=== PATIENT | male | born 1985 | race Caucasian/White ===

== ENCOUNTER 2021-10-28 19:36 | Observation (INO) | payer OTHER, SELFPAY ==
--- NOTE | ~2021-10-28 | XR_ITS ---
EXAMINATION: XR foot RT min 3V DATE: 10/28/2021 20:29 INDICATION: Puncture wound with infection TECHNIQUE: Dorsoplantar, two oblique and lateral views of the right foot were obtained. COMPARISON: None. FINDINGS: Bone alignment is normal. No fracture. Joint spaces are normal. No cortical erosions or periosteal re action. Prominent soft tissue swelling medial to the first metatarsophalangeal joint. No soft tissue gas or radiopaque foreign bodies. IMPRESSION: 1. No osseous abnormality, soft tissue gas or radiopaque foreign bodies. Reviewed, dictated and finalized at location [facility]
--- NOTE | ~2021-10-28 | CT_ITS ---
EXAMINATION: CT foot RT w con DATE: 10/29/2021 16:42 INDICATION: Right foot puncture wound with infection. TECHNIQUE: High resolution computed tomography (CT) of the with 100 mL Omnipaque-350 was performed wi thout intravenous contrast. Additional sagittal and coronal reconstructions were performed. Automated exposure control and iterative reconstruction technique were employed. The dose-length product was 7 4.44 mGy-cm. COMPARISON: None FINDINGS: Soft tissue swelling surrounding a 1.6 x 1.0 x 1.8 cm region of decreased attenuation with surroundin g hyperemia in the soft tissues overlying the medial base of the first proximal phalanx. No organized enhancing peripheral wall to suggest abscess. There is some overlying bandaging material. No associa saray retained foreign body or evident soft tissue gas to suggest necrotizing fasciitis. No evident und erlying osteolysis or periosteal reaction to suggest osteomyelitis. Bone alignment is normal. No frac ture. There is a small chronic juxta articular erosion at the medial head of the first metatarsal wit h overhanging edges and smooth corticated margins almost from the unrelated to the recent puncture in jur but with location and appearance typical for gout. Joint spaces are normal. No joint effusions. There is a sclerotic bone island at the lateral side of the distal tibia. IMPRESSION: 1. Cellulitis surrounding a 1.6 x 1.0 x 1.8 cm low-attenuation region of likely phlegmonous change wi thout organized wall to suggest abscess in the subcutaneous tissues overlying the medial base of the right first proximal phalanx. No underlying acute osseous abnormality, retained radiopaque foreign bart dies or soft tissue gas to suggest necrotizing fasciitis. Reviewed, dictated and finalized at location [facility] IMPRESSION: 1. Cellulitis surrounding a 1.6 x 1.0 x 1.8 cm low-attenuation region of likely phlegmonous change without organized wall to suggest abscess in the subcutaneo us tissues overlying the medial base of the right first proximal phalanx. No un derlying acute osseous abnormality, retained radiopaque foreign bodies or soft tissue gas to suggest necrotizing fasciitis.
[2021-10-28 19:41] VITALS: BP 143/84; PULSE 147; RESP 21; TEMP 36.7; O2SAT 100
[2021-10-28 20:30] LABS: Basophils Absolute Auto 0.1 K/mm3 (0.0-0.1); Basophils Percent Auto 0.5 % (0.2-1.2); Eosinophils Absolute Auto 0.3 K/mm3 (0-0.3); Eosinophils Percent Auto 1.8 % (0-4.4); Hematocrit 40.3 % (42.0-52.0); Hemoglobin 13.4 g/dL (14.0-18.0); Immature Granulocyte Absolute 0.05 K/mm3 (0.00-0.031); Immature Granulocyte Percent A 0.3 % (0-0.5); Lymphocytes Absolute Auto 4.17 K/mm3 (0.9-3.2); Lymphocytes Percent Auto 23.8 % (18.3-44.2); Mean Corpuscular HGB Conc 33.3 g/dl (32-36); Mean Corpuscular Hemoglobin 28.6 pg (26-34); Mean Corpuscular Volume 86.1 fl (80-100); Mean Platelet Volume 8.8 fl (7.4-10.4); Monocytes Absolute Auto 1.4 K/mm3 (0.1-0.6); Neutrophils Absolute Auto 11.5 K/mm3 (1.3-6.7); Neutrophils Percent Auto 65.6 % (45.5-73.1); Platelet Count Result 594 k/mm3 (150-375); Red Blood Count 4.68 M/mm3 (4.6-6.20); Red Cell Distribution Width 13.6 % (11.5-14.5); White Blood Count 17.5 K/mm3 (4.5-10.0)
[2021-10-28] MEDS: SODIUM CHLORIDE 0.9% IV 2,000 ML/1,000 ML BAG 999 ML IV CONT ×2 (20:33→23:36)
[2021-10-28] MEDS: MORPHINE SULFATE (*CRX) 4 MG/ML INJ IV PUSH ×2 (20:33→23:36)
[2021-10-28 20:43] LABS: Lactic Acid Reflex 1.4 mmol/L (0.7-2.1)
[2021-10-28 20:45] LABS: Alanine Aminotransferase 90 U/L (4-50); Albumin Level 4.7 g/dL (3.5-5.1); Alkaline Phosphatase 241 U/L (38-126); Anion Gap 7 mmol/L (8-16); Aspartate Amino Transferase 47 U/L (17-59); Bilirubin,Total 0.3 mg/dL (0.2-1.3); Blood Urea Nitrogen 16 mg/dL (9-20); CRP 3.4 mg/dL (<1.0); Calcium 9.8 mg/dL (8.4-10.2); Carbon Dioxide 31 mmol/L (22-30); Chloride 98 mmol/L (98-107); Estimated CRCL calculation 78 ml/min; Estimated Glomerular Filt Rate > 60; Glucose 106 mg/dL (65-110); Potassium 3.9 mmol/L (3.4-5.0); Sodium 136 mmol/L (137-145)
--- NOTE | 2021-10-28 21:08 | ED.GENADULT ---
HPI - General Adult General Chief complaint: Extremity Injury, Lower Stated complaint: right big toe injury/pain Time Seen by Provider: 10/28/21 20:08 History of Present Illness HPI narrative: Patient is a 36-year-old male who presents ER with foot pain and swelling. Worsening over the last 4 days. Patient stepped on a piece of wood containing 4 nails several days ago. Reports tetanus shot up-to-date. He has drainage from the plantar aspect of his foot. His foot is swollen and red. Denies fevers or chills. No chest pain or chest pressure. No difficulty breathing. Related Data Home Medications Medication Instructions Recorded Confirmed No Home Medications 10/28/21 10/28/21 Allergies Allergy/AdvReac Type Severity Reaction Status Date / Time Sulfa (Sulfonamide Allergy Unknown Unknown Verified 10/28/21 20:32 Antibiotics) Review of Systems Review of Systems: All systems reviewed & are unremarkable except as noted in HPI and below Constitutional: Constitutional: Denies chills, Denies fever(s) and Denies weakness ENT: Denies nasal congestion and Denies sore throat Cardiovascular: Cardiovascular: Denies chest pain, Denies rapid heart rate and Denies radiating jaw, neck or arm pain Respiratory: Respiratory: Denies cough and Denies dyspnea Gastrointestinal: Gastrointestinal: Denies abdominal pain, Denies nausea and Denies vomiting Musculoskeletal: Musculoskeletal: Denies muscle cramps Comments: Foot swelling Integumentary/Breasts: Skin/Breast: Reports erythema and Reports skin ulcer PMFSH Past Medical History Medical History (Updated 10/28/21 @ 21:40 by Kasi Rondon MD) Healthy adult male Surgical History Surgical History (Updated 10/28/21 @ 21:37 by Kasi Rondon MD) No history of previous surgery Social History Social History (Updated 10/28/21 @ 21:38 by Kasi Rondon MD) Smoking status: Current every day smoker Exam Narrative: GENERAL: Well-appearing, unkempt, well-nourished, and in no acute distress. HEAD: Normocephalic, atraumatic. ENT: Mucous membranes moist. CHEST: Clear to auscultation. No respiratory distress. HEART: Regular rate and rhythm. Normal peripheral pulses. ABDOMEN: Soft, nontender, nondistended. EXTREMITIES: Normal range of motion. 1+ edema right foot. SKIN: Warm, dry. Cellulitis right foot with sloughing of skin over the lateral aspect of the first MTP. There is a draining wound to the plantar aspect of the foot underneath the first MTP. NEURO: Alert and oriented x3. PSYCH: Normal mood and affect. Course Course Emergency Course: Discussed treatment plan with patient. Admit to hospitalist service. Cefazolin ordered. General surgery consulted. Vital Signs Vital signs: Vital Signs Temperature 98.0 F 10/28/21 19:41 Pulse Rate 147 H 10/28/21 19:41 Respiratory Rate 21 H 10/28/21 19:41 Blood Pressure 143/84 H 10/28/21 19:41 Pulse Oximetry 100 10/28/21 19:41 Temperature 98.0 F 10/28/21 19:41 Pulse Rate 147 H 10/28/21 19:41 Respiratory Rate 21 H 10/28/21 19:41 Blood Pressure 143/84 H 10/28/21 19:41 Pulse Oximetry 100 10/28/21 19:41 Medical Decision Making Vital Signs Vital Signs: Vital Signs Temperature 98.0 F 10/28/21 19:41 Pulse Rate 147 H 10/28/21 19:41 Respiratory Rate 21 H 10/28/21 19:41 Blood Pressure 143/84 H 10/28/21 19:41 Pulse Oximetry 100 10/28/21 19:41 Temperature 98.0 F 10/28/21 19:41 Pulse Rate 147 H 10/28/21 19:41 Respiratory Rate 21 H 10/28/21 19:41 Blood Pressure 143/84 H 10/28/21 19:41 Pulse Oximetry 100 10/28/21 19:41 Lab Data Result diagrams: 10/28/21 20:20 10/28/21 20:21 Labs: Lab Results 10/28/21 10/28/21 10/28/21 Range/Units 20:20 20:21 20:21 WBC 17.5 H (4.5-10.0) K/mm3 RBC 4.68 (4.6-6.20) M/mm3 Hgb 13.4 L (14.0-18.0) g/dL Hct 40.3 L (42.0-52.0) % MCV 86.1 (80-100) fl MCH 28.6 (2
--- NOTE | 2021-10-28 22:29 | PM.IMHP ---
H&P: HPI History of Present Illness Date/Time: 10/28/21 22:29 Chief Complaint: Right foot swelling Narrative: This is a 36-year-old male with past medical history significant for IVDU methamphetamine, tobacco dependence. Patient presented to the emergency room due to right foot swelling and pain a few days ago patient while doing yd cleaning step on a piece of wood with for nails is sticking out this was roughly 4-5 days ago he notices worsening pain swelling redness and then purulent discharge. However he denies any fevers, any rigors, any chills, no nausea no vomiting no abdominal pain no diarrhea no shortness of breath no cough no sputum production he has been in his usual state of health. Preliminary workup was significant for foot x-ray no osseous abnormality, soft tissue gas or radiopaque foreign bodies. Patient has been started on IV antibiotics and is going to be admitted for further evaluation, management and treatment. Review of Systems Review of Systems: Right foot a swelling in pain purulent discharge from penetration wound by foreign body. Constitutional: Constitutional: Denies chills, Denies fatigue, Denies fever(s), Denies malaise and Denies night sweats Eyes: Eyes: Denies change in vision ENT: Denies dysphagia, Denies nasal congestion, Denies nasal discharge, Denies nasal obstruction and Denies odynophagia Cardiovascular: Cardiovascular: Denies acrocyanosis, Denies chest pain, Denies diaphoresis, Denies irregular heart rhythm, Denies radiating jaw, neck or arm pain and Denies dyspnea on exertion Respiratory: Respiratory: Denies change in phlegm color, Denies cough, Denies excessive phlegm production, Denies dyspnea and Denies wheezing Gastrointestinal: Gastrointestinal: Denies abdominal pain, Denies dyspepsia, Denies heartburn, Denies diarrhea, Denies nausea and Denies vomiting Genitourinary: Genitourinary: Denies dysuria and Denies flank pain Musculoskeletal: Comments: Right foot wound swelling purulent discharge Integumentary/Breasts: Skin/Breast: Denies rash Neurologic: Denies focal weakness and Denies Sensory deficit (Neuro) Psychiatric: Psychiatric: Reports no additional psychiatric complaints and Reports as per HPI Endocrine: Endocrine: Denies polyphagia, Denies polydipsia, Denies polyuria and Denies palpitations Hematologic/Lymphatic: Hematologic/Lymphatic: Reports no additional hematologic/lymphatic complaints and Reports as per HPI Allergic/Immunologic: Allergic/Immunologic: Reports no additional allergic/immunologic complaints and Reports as per HPI [facility] Past Medical History Medical History (Updated 10/29/21 @ 05:36 by Isaias Duffy MD) Healthy adult male Surgical History Surgical History (Updated 10/28/21 @ 21:37 by Kasi Rondon MD) No history of previous surgery Social History Social History (Updated 10/28/21 @ 21:38 by Kasi Rondon MD) Smoking status: Current every day smoker Tobacco type: cigarettes Second hand tobacco smoke exposure: Yes Alcohol intake: unknown Substance use: unknown Spiritual care concerns: No Meds Home Medications and Allergies Home Medications Medication Instructions Recorded Confirmed Type No Home Medications 10/28/21 10/28/21 History Allergies Allergy/AdvReac Type Severity Reaction Status Date / Time Sulfa (Sulfonamide Allergy Unknown Unknown Verified 10/28/21 20:32 Antibiotics) Vital Signs Vital Signs - 24 hr 10/28/21 19:41 Temperature 98.0 F Pulse Rate 147 H Respiratory Rate 21 H Blood Pressure 143/84 H Pulse Oximetry 100 Exam Narrative: Laying in [facility] Const: General: cooperative, comfortable, no acute distress, well developed, alert, awake, Physically active, well groomed and other Nutritional Appearance: thin Orientation/consciousness: patient oriented x3 HENMT: Head: normal to inspection, normocephalic and atraumatic Ears: hearing grossly normal bilaterally General nose exam
[2021-10-28 22:45] VITALS: BP 157/74; PULSE 109; RESP 16; TEMP 37.1; O2SAT 98
[2021-10-28 23:30] VITALS: BP 135/83; PULSE 110; RESP 22; TEMP 37.6; O2SAT 100; BMI 23.1
[2021-10-29] VITALS: BP 135/83; PULSE 110; RESP 22; TEMP 37.6; O2SAT 96
[2021-10-29 00:39] VITALS: BMI 23.1
--- NOTE | 2021-10-29 00:41 | ADMGEN ---
This patient, Tanner Montilla, was admitted to [facility] Surg Room 321-01. Patient/family oriented to hospital policies and general routines including ID bracelet, bed and alarms, visiting hours, pain management, procedures, bathroom and other care routines, personal items, smoking policy, room service/diet, and visiting hours. Information on how to activate the Rapid Response Team has been discussed. Patient/Family are encouraged to report perceived risks to care and to ask questions if they do not understand what they are told or what they should do.
[2021-10-29 06:00] VITALS: BP 117/76; PULSE 104; RESP 20; TEMP 36.9; O2SAT 97
[2021-10-29] MEDS: MORPHINE SULFATE (*CRX) 4 MG/ML INJ IV PUSH (08:39)
--- NOTE | 2021-10-29 09:47 | PM.CNGS ---
Assessment and Plan Assessment and plan (1) Puncture wound: Code(s): T14.8XXA - Other injury of unspecified body region, initial encounter Status: Acute Assessment and Plan: Patient appears to have cellulitis and possible abscess at puncture wound from previously stepping on a nail. Will plan to get a CT of his foot today. Patient has already eaten today, therefore surgical procedure will be unlikely. Will plan to keep NPO after midnight and proceed with incision and drainage of right foot abscess tomorrow. He is currently broad-spectrum IV antibiotics. (2) Cellulitis and abscess of foot: Code(s): L03.119 - Cellulitis of unspecified part of limb; L02.619 - Cutaneous abscess of unspecified foot Status: Acute (3) Tobacco dependence due to cigarettes: Code(s): F17.210 - Nicotine dependence, cigarettes, uncomplicated Status: Acute History of Present Illness Consult details Consult date: 10/29/21 Reason for consult: other (Foot puncture wound) Requesting physician: Kasi Rondon MD Narrative: this is a 36-year-old man who presented to the emergency department overnight with swelling and pain in his right foot. About 4 days ago he states he stepped on a piece of wood with 4 nails sticking out of it. He states that he is up-to-date on his tetanus shot, therefore he tried to treat this at home. He has had progressively worsening swelling and pain over the past several days. He states that his great toe it feels very swollen and painful. He has also had some slight drainage coming from the wound. He denies any prior vascular disease. Denies any claudication. His forefoot feels very swollen, but he denies any swelling extending up his leg. He denies any fevers or chills. Review of Systems Review of Systems: All systems reviewed & are unremarkable except as noted in HPI and below Constitutional: Constitutional: Denies chills and Denies fever(s) Eyes: Eyes: Denies change in vision ENT: Denies hearing loss, Denies neck pain and Denies sore throat Cardiovascular: Cardiovascular: Denies chest pain and Denies dyspnea Respiratory: Respiratory: Denies cough, Denies dyspnea and Denies wheezing Gastrointestinal: Gastrointestinal: Denies abdominal pain, Denies nausea and Denies vomiting Genitourinary: Genitourinary: Denies hematuria and Denies dysuria Musculoskeletal: Musculoskeletal: Denies arthralgias, Denies joint swelling and Denies neck pain Allergic/Immunologic: Allergic/Immunologic: Denies wheezing PMFSH Past Medical History Medical History Healthy adult male Surgical History Surgical History No history of previous surgery Social History Social History Smoking status: Current every day smoker Tobacco type: cigarettes Second hand tobacco smoke exposure: Yes Alcohol intake: unknown Substance use: unknown Spiritual care concerns: No Meds Home Medications and Allergies Home Medications Medication Instructions Recorded Confirmed Type No Home Medications 10/28/21 10/28/21 History Allergies Allergy/AdvReac Type Severity Reaction Status Date / Time Sulfa (Sulfonamide Allergy Unknown Unknown Verified 10/28/21 20:32 Antibiotics) Vital Signs Vital Signs - 24 hr 10/28/21 19:41 10/28/21 22:45 10/28/21 23:30 Temperature 36.7 C 37.1 C 37.6 C Pulse Rate 147 H 109 H 110 H Respiratory Rate 21 H 16 22 H Blood Pressure 143/84 H 157/74 H 135/83 Pulse Oximetry 100 98 100 10/29/21 00:00 10/29/21 06:00 Temperature 37.6 C 36.9 C Pulse Rate 110 H 104 H Respiratory Rate 22 H 20 Blood Pressure 135/83 117/76 Pulse Oximetry 96 97 Exam Const: General: alert; No acute distress Orientation/consciousness: patient oriented x3 Limitations: no limitations HENMT: Head: norm
--- NOTE | 2021-10-29 11:48 | PM.IMPN ---
Progress Note: A&P Assessment and Plan (1) Cellulitis and abscess of foot: Code(s): L03.119 - Cellulitis of unspecified part of limb; L02.619 - Cutaneous abscess of unspecified foot Status: Acute Assessment and Plan: Admit to regular medical floor Local care Surgery consult Maliha lao vanc Cultures in progress (2) Puncture wound: Code(s): T14.8XXA - Other injury of unspecified body region, initial encounter Status: Acute Assessment and Plan: Surgery consulted Local care Will give dose of tetanus (3) IVDU (intravenous drug user): Code(s): F19.90 - Other psychoactive substance use, unspecified, uncomplicated Status: Acute Assessment and Plan: Patient with no fevers chills or rigors no night sweats Consider echocardiogram if positive blood cultures (4) Tobacco dependence due to cigarettes: Code(s): F17.210 - Nicotine dependence, cigarettes, uncomplicated Status: Acute Assessment and Plan: Nicotine patch as needed Additional Plan 10/29/2021 Continue with IV antibiotics. Monitor culture. Surgical evaluation. Subjective Date/time seen: 10/29/21 11:48 Patient has swelling and redness of right lower ext foot. No shortness of breath or chest pain. No abdominal pain, nausea, no vomiting, mood stable. Review of Systems Constitutional: Constitutional: Denies chills, Denies fatigue, Denies fever(s), Denies malaise and Denies night sweats Eyes: Eyes: Denies change in vision ENT: Denies dysphagia, Denies nasal congestion, Denies nasal discharge, Denies nasal obstruction and Denies odynophagia Cardiovascular: Cardiovascular: Denies acrocyanosis, Denies chest pain, Denies diaphoresis, Denies irregular heart rhythm, Denies radiating jaw, neck or arm pain, Denies palpitations, Denies dyspnea and Denies dyspnea on exertion Respiratory: Respiratory: Denies change in phlegm color, Denies cough, Denies excessive phlegm production, Denies dyspnea, Denies dyspnea on exertion and Denies wheezing Gastrointestinal: Gastrointestinal: Denies abdominal pain, Denies dysphagia, Denies dyspepsia, Denies heartburn, Denies diarrhea, Denies nausea, Denies odynophagia and Denies vomiting Genitourinary: Genitourinary: Denies dysuria and Denies flank pain Integumentary/Breasts: Skin/Breast: Denies rash Neurologic: Denies focal weakness and Denies Sensory deficit (Neuro) Psychiatric: Psychiatric: Reports no additional psychiatric complaints and Reports as per HPI Endocrine: Endocrine: Denies fatigue, Denies polyphagia, Denies polydipsia, Denies polyuria and Denies palpitations Hematologic/Lymphatic: Hematologic/Lymphatic: Reports no additional hematologic/lymphatic complaints and Reports as per HPI Allergic/Immunologic: Allergic/Immunologic: Reports no additional allergic/immunologic complaints, Reports as per HPI and Denies wheezing Exam Const: General: cooperative, comfortable, no acute distress, well developed, alert, awake, Physically active, well groomed and other Nutritional Appearance: thin Orientation/consciousness: patient oriented x3 HENMT: Head: normal to inspection, normocephalic and atraumatic Ears: hearing grossly normal bilaterally General nose exam: Normal external nose present Face and sinus: normal facial exam Eyes: General: appearance normal, both eyes and all related structures Alignment and Position: alignment normal Sclera: sclerae normal Pupils: Equal, round and reactive pupils present EOM: EOMs intact bilaterally Neck: Neck: normal visual inspection, full ROM, no lymphadenopathy, supple and no JVD Thyroid: thyroid normal Lymphatic: no lymphadenopathy noted Resp: Effort & Inspection: normal respiratory effort and able to speak in complete sentences Auscultation: clear to auscultation bilaterally, no crackles, no rales, no rhonchi and no wheezes Cardio: Jugular venous distension: no JVD Rate: regular rate Rhythm: regular rhythm Heart sounds: S
[2021-10-29 14:00] VITALS: BP 127/77; PULSE 91; RESP 18; TEMP 36.9; O2SAT 100
[2021-10-29 19:42] VITALS: BP 119/59; PULSE 114; RESP 18; TEMP 36.6; O2SAT 100
[2021-10-29 20:00] VITALS: RESP 18; O2SAT 100
[2021-10-30] VITALS (11 sets, daily range): BP systolic 84–116; BP diastolic 52–75; PULSE 62–120; RESP 12–20; TEMP 36.2–37.1; O2SAT 96–100
[2021-10-30 06:29] LABS: Hematocrit 39.2 % (42.0-52.0); Hemoglobin 13.2 g/dL (14.0-18.0); Mean Corpuscular HGB Conc 33.7 g/dl (32-36); Mean Corpuscular Hemoglobin 28.4 pg (26-34); Mean Corpuscular Volume 84.5 fl (80-100); Mean Platelet Volume 8.8 fl (7.4-10.4); Platelet Count Result 554 k/mm3 (150-375); Red Blood Count 4.64 M/mm3 (4.6-6.20); Red Cell Distribution Width 13.5 % (11.5-14.5); White Blood Count 11.7 K/mm3 (4.5-10.0)
[2021-10-30 06:45] LABS: Anion Gap 5 mmol/L (8-16); Blood Urea Nitrogen 9 mg/dL (9-20); Carbon Dioxide 26 mmol/L (22-30); Chloride 101 mmol/L (98-107); Estimated CRCL calculation 105 ml/min; Estimated Glomerular Filt Rate > 60; Glucose 109 mg/dL (65-110); Potassium 4.4 mmol/L (3.4-5.0); Sodium 132 mmol/L (137-145)
--- NOTE | 2021-10-30 09:51 | PM.IMPN ---
Progress Note: A&P Assessment and Plan (1) Cellulitis and abscess of foot: Code(s): L03.119 - Cellulitis of unspecified part of limb; L02.619 - Cutaneous abscess of unspecified foot Status: Acute Assessment and Plan: Admit to regular medical floor Local care Surgery consult Maliha lao vanc Cultures in progress (2) Puncture wound: Code(s): T14.8XXA - Other injury of unspecified body region, initial encounter Status: Acute Assessment and Plan: Surgery consulted Local care Will give dose of tetanus (3) IVDU (intravenous drug user): Code(s): F19.90 - Other psychoactive substance use, unspecified, uncomplicated Status: Acute Assessment and Plan: Patient with no fevers chills or rigors no night sweats Consider echocardiogram if positive blood cultures (4) Tobacco dependence due to cigarettes: Code(s): F17.210 - Nicotine dependence, cigarettes, uncomplicated Status: Acute Assessment and Plan: Nicotine patch as needed Additional Plan 10/29/2021 Continue with IV antibiotics. Monitor culture. Surgical evaluation. 10/30/2021 WBC count has decreased to 11. Patient is scheduled for in cm trended today. Will continue with IV antibiotic. Cultures pending. Subjective Date/time seen: 10/30/21 09:51 Patient was seen during the morning rounds today. Patient put is still slightly swollen and red. No shortness of breath or chest pain. No abdominal pain, nausea, no vomiting. Mood stable. Exam Const: General: cooperative, comfortable, no acute distress, well developed, alert, awake, Physically active, well groomed and other Nutritional Appearance: thin Orientation/consciousness: patient oriented x3 HENMT: Head: normal to inspection, normocephalic and atraumatic Ears: hearing grossly normal bilaterally General nose exam: Normal external nose present Face and sinus: normal facial exam Eyes: General: appearance normal, both eyes and all related structures Alignment and Position: alignment normal Sclera: sclerae normal Pupils: Equal, round and reactive pupils present EOM: EOMs intact bilaterally Neck: Neck: normal visual inspection, full ROM, no lymphadenopathy, supple and no JVD Thyroid: thyroid normal Lymphatic: no lymphadenopathy noted Resp: Effort & Inspection: normal respiratory effort and able to speak in complete sentences Auscultation: clear to auscultation bilaterally, no crackles, no rales, no rhonchi and no wheezes Cardio: Jugular venous distension: no JVD Rate: regular rate Rhythm: regular rhythm Heart sounds: S1 normal heart sound present and S2 normal heart sound present GI: Inspection: normal to inspection : General: Yes deferred Skin: Rashes: no rashes Wounds: wounds noted (Right plantar aspect) Neuro: General: patient oriented x3, CN's II-XI intact bilaterally and Unable to assess gait Cranial nerves: Yes CN's II-XII intact bilaterally and Yes Equal, round and reactive pupils present Cognition (Neuro): normal cognition Speech: normal speech Gait exam (Neuro): Unable to assess gait Motor exam (neuro): 5/5 motor strength present throughout Sensory Exam: No Sensory deficit (Neuro) Extrem: General: normal to inspection, full ROM, no joint enlargement and no pedal edema Right lower extremity: foot Details: tenderness, warmth, edema, puncture wound and other (Purulent discharge) Objective Data Vital Signs Vital Signs: Vital Signs - 24 hr 10/29/21 14:00 10/29/21 19:42 10/29/21 20:00 Temperature 36.9 C 36.6 C Pulse Rate 91 114 H Respiratory Rate 18 18 18 Blood Pressure 127/77 119/59 L Pulse Oximetry 100 100 100 10/30/21 04:12 Temperature 36.2 C L Pulse Rate 120 H Respiratory Rate 17 Blood Pressure 101/54 L Pulse Oximetry 100 Intake/Output Intake/Output: Intake & Output 10/27/21 10/28/21 10/29/21 10/30/21 23:59 23:59 23:59 23:59 Intake Total 1050 1520 350 Output Total 800 900 Balance 1050 698 -550
--- NOTE | 2021-10-30 12:30 | WPDANESEPPF ---
Anes - Initial Pre Proc Eval Procedure: Operation Date: 10/30/21 13:00 Proposed Procedures p Incision And Drainage Right Foot - Glenn Ellsworth DO Date/Time: 10/30/21 12:30 Surgeon: Isaias Duffy MD Pre Op Diagnosis: Foot wound with cellulitis Patient Data Age: 36 Gender: M Height: 1.73 m Weight: 68.9 kg Last Vital Signs Temp 36.6 C 10/30/21 12:27 Pulse 105 H 10/30/21 12:27 Resp 20 10/30/21 12:27 BP 116/68 10/30/21 12:27 Pulse Ox 100 10/30/21 12:27 Allergies Allergy/AdvReac Type Severity Reaction Status Date / Time Sulfa (Sulfonamide Allergy Unknown Unknown Verified 10/28/21 20:32 Antibiotics) Home Medications Medication Instructions Recorded Confirmed Type No Home Medications 10/28/21 10/28/21 History Laboratory Tests 10/30/21 10/30/21 06:20 06:20 WBC 11.7 K/mm3 H K/mm3 (4.5-10.0) RBC 4.64 M/mm3 M/mm3 (4.6-6.20) Hgb 13.2 g/dL L g/dL (14.0-18.0) Hct 39.2 % L % (42.0-52.0) MCV 84.5 fl fl (80-100) MCH 28.4 pg pg (26-34) MCHC 33.7 g/dl g/dl (32-36) RDW 13.5 % % (11.5-14.5) Plt Count 554 k/mm3 H k/mm3 (150-375) MPV 8.8 fl fl (7.4-10.4) Sodium 132 mmol/L L mmol/L (137-145) Potassium 4.4 mmol/L mmol/L (3.4-5.0) Chloride 101 mmol/L mmol/L (98-107) Carbon Dioxide 26 mmol/L mmol/L (22-30) Anion Gap 5 mmol/L L mmol/L (8-16) BUN 9 mg/dL D mg/dL (9-20) Creatinine 0.80 mg/dL mg/dL (0.7-1.3) Estim Creat Clear Calc 105 ml/min ml/min Estimated GFR > 60 (59 - ) Glucose 109 mg/dL mg/dL (65-110) Calcium 9.0 mg/dL mg/dL (8.4-10.2) Patient hx anesthesia problems: none Family hx anesthesia problems: none Results Review: All pre-operative results and documents have been reviewed as part of the pre-operative evaluation. [facility] Past Medical History Medical History Healthy adult male Surgical History Surgical History No history of previous surgery Social History Social History Smoking status: Current every day smoker Tobacco type: cigarettes Second hand tobacco smoke exposure: Yes Alcohol intake: unknown Substance use: unknown Spiritual care concerns: No Anes - Eval Final PreProcedure Day of Procedure 10/30/21 12:30 Patient weight: normal Heart: regular rate and rhythm Lungs: clear to auscultation and normal air movement Airway: Mallampati scale class II Neurological: alert and oriented Last oral intake: >/= 8 hours ASA classification: III Emergent: no Anesthetic plan: proceed Anesthesia type and monitoring: general LMA and standard monitoring Results Review: All pre-operative results and documents have been reviewed as part of the pre-operative evaluation. Informed Consent: The patient's anesthetic plan and its attendant risks and benefits were discussed with the patient/family/POA. Questions were solicited and answers provided to the satisfaction of the patient/family/POA.
--- NOTE | 2021-10-30 12:42 | WPDHPUPDATE1 ---
History and Physical Update Update Date/Time: 10/30/21 12:42 History and Physical has been reviewed, including an updated exam of the patient. There are NO changes in the patient's condition. Risks, benefits, and alternatives have been discussed and questions answered. Patient agrees to proceed with procedure.
[2021-10-30] MEDS: LACTATED RINGERS 1,000 ML 30 ML IV CONT ×2 (12:45→14:08)
[2021-10-30] MEDS: BUPIVACAINE HCL 0.5% PF 30 ML VIAL INFILTRATE (13:28)
--- NOTE | 2021-10-30 13:32 | W.PM.PROC2 ---
Procedure Note - Detailed Date of Procedure 10/30/21 Pre-op Diagnosis Foot wound with cellulitis Post-op Diagnosis same Procedure Performed Incision and drainage of right foot abscess Surgeon Glenn Ellsworth, DO Anesthesia general and local (0.5% bupivacaine) Indications This is a 36-year-old man who presented with a foot wound that resulted from stepping on a wooden plank with nails sticking out of it. He developed swelling and drainage from the puncture wound several days after the initial injury. He now presents with signs of an abscess with purulence drainage from the puncture site and from the medial surface the foot. Decision was made to proceed with incision and drainage of right foot abscess. Findings Incision and drainage was performed. Patient had scant drainage from the plantar surface at the nail puncture site. An incision was made over this area but not much purulence fluid drained. This wound did appear to track along the medial surface of the proximal phalanx head and there was another area of purulence drainage along the more dorsal surface of the foot. Incision and drainage made over this area to and purulence fluid drained. Description of Procedure Patient was brought back to surgical suite. He was placed supine operating table. Time-out was done to confirm patient and procedure. He was then intubated 6 department. His right foot area was prepped and draped in sterile fashion using Betadine prep. 0.5% bupivacaine was infiltrated locally around the wound. A 2 cm incision was made on the plantar surface of the foot. The wound was then tracked along the medial surface of the phalanx. Another incision was made over the dorsal surface where there was more purulence drainage from the wound. The wound was then cleaned out with saline. No further abscess was identified. The wounds were then packed with quarter-inch iodoform gauze. The patient was then awakened from anesthesia extubated, transferred to recovery. Estimated Blood Loss 5 Urine Output 900 Packing Yes (Quarter-inch iodoform gauze) Complications No immediate complications Condition stable Disposition floor
[2021-10-30] MEDS: fentaNYL CITRATE INJ (*CRX) 100 MCG/2 ML VIAL 25 MCG IV PUSH (14:12)
[2021-10-30] MEDS: LACTATED RINGERS 1,000 ML 100 ML IV CONT (14:48)
[2021-10-30 16:13] LABS: Vancomycin Trough 6.1 ug/mL (10.0-20.0)
[2021-10-30] MEDS: HYDROcodone/acetaminophen (*CRX) 5-325 MG TABLET 1 TAB PO (17:15)
[2021-10-30] MEDS: HEPARIN SODIUM 5,000 UNITS/ML VIAL 5000 UNITS SUB-Q (21:02)
[2021-10-31 04:00] VITALS: BP 101/50; PULSE 91; RESP 18; TEMP 36.8; O2SAT 100
--- NOTE | 2021-10-31 09:59 | WPDANESPN ---
Anes - Prog Note Post-Op Date/Time: 10/31/21 09:59 Cardiovascular status: normal Respiratory status: normal Airway patency: baseline Mental status: baseline Post-Op hydration status: normal Vital Signs: Last Vital Signs Temp 98.3 F 10/31/21 04:00 Pulse 91 10/31/21 04:00 Resp 18 10/31/21 04:00 BP 101/50 L 10/31/21 04:00 Pulse Ox 100 10/31/21 04:00 Pain Score (VAS): 0/10 I/O: Intake & Output 10/30/21 10/31/21 10/31/21 23:59 07:59 15:59 Intake Total 790 400 360 Output Total 800 900 Balance -10 -500 360 Laboratory Tests 10/30/21 06:20 10/30/21 06:20 10/30/21 15:39 Vancomycin Trough 6.1 L Microbiology 10/28/21 20:20 Foot Right Wound Culture - Final Group A Streptococcus isolated Post-procedural complaints: none Patient Feedback: Patient satisfied with anesthetic care.
[2021-10-31] MEDS: HEPARIN SODIUM 5,000 UNITS/ML VIAL 5000 UNITS SUB-Q (10:00)
[2021-10-31] MEDS: HYDROcodone/acetaminophen (*CRX) 5-325 MG TABLET 1 TAB PO (11:40)
--- NOTE | 2021-10-31 12:14 | PM.PNGS ---
Progress Note: A&P Assessment and Plan (1) Puncture wound: Code(s): T14.8XXA - Other injury of unspecified body region, initial encounter Status: Acute Assessment and Plan: POD1 and doing well. Right foot abscess adequately drained. No need for further packing. Will initiate local wound care with silver gel dressing changes. Okay to discharge from our standpoint. Educated the patient on wound care. Follow-up only as needed. (2) Cellulitis and abscess of foot: Code(s): L03.119 - Cellulitis of unspecified part of limb; L02.619 - Cutaneous abscess of unspecified foot Status: Acute Assessment and Plan: Improving. Abx per Hospitalist. See plan above. (3) Tobacco dependence due to cigarettes: Code(s): F17.210 - Nicotine dependence, cigarettes, uncomplicated Status: Acute Additional Plan I have discussed the patient's case and plan of care with Dr. Ellsworth. Subjective Subjective Date/Time Seen: 10/31/21 11:14 Post Op day: 1 (Incision and drainage of right foot abscess) Patient reports: no new complaints, feels better, pain is less and afebrile Interval history: Patient seen and examined today. He reports feeling better today without any pain in his foot at the time of my exam. Reports the swelling and redness have improved even further today. Exam Const: General: comfortable, no acute distress, alert and awake Orientation/consciousness: patient oriented x3 Skin: Other: Right foot dressing and packing removed, incision on plantar aspect of foot without any purulent drainage. Open wound to dorsal aspect of foot without any purulent drainage or significant necrotic tissue. Erythema and edema improved. Psych: Mental Status: mental status grossly normal Insight: Good insight present (Psych) Judgement: Good judgement present (Psych) Objective Data Vital Signs Vital Signs: Vital Signs - 24 hr 10/30/21 12:27 10/30/21 13:34 10/30/21 13:45 Temperature 97.8 F 97.7 F Pulse Rate 105 H 111 H 103 H Respiratory Rate 20 15 14 Blood Pressure 116/68 90/58 L 84/63 L Pulse Oximetry 100 100 100 10/30/21 13:50 10/30/21 14:05 10/30/21 14:20 Temperature Pulse Rate 97 100 86 Respiratory Rate 14 12 13 Blood Pressure 96/66 L 96/64 L 106/73 Pulse Oximetry 100 100 99 10/30/21 14:32 10/30/21 17:50 10/30/21 20:00 Temperature 98.0 F 98.7 F Pulse Rate 94 103 H 62 Respiratory Rate 12 18 18 Blood Pressure 109/75 115/62 101/52 L Pulse Oximetry 100 100 96 10/30/21 23:31 10/31/21 04:00 Temperature 98.3 F 98.3 F Pulse Rate 85 91 Respiratory Rate 18 18 Blood Pressure 100/58 L 101/50 L Pulse Oximetry 100 100 Intake/Output Intake/Output: Intake & Output 10/28/21 10/29/21 10/30/21 10/31/21 23:59 23:59 23:59 23:59 Intake Total 1050 1520 1790 810 Output Total 800 2600 900 Balance 1050 720 -810 -90 Meds/Results Medications: Active Medications Generic Name Dose Route Start Last Admin Trade Name Freq PRN Reason Stop Dose Admin Acetaminophen 650 mg 10/28/21 21:10 Acetaminophen 325 Mg Tablet PO Q4H PRN Mild Pain (1-3) or Fever Hydrocodone Bitart/Acetaminophen 1 tab 10/28/21 21:10 10/31/21 11:40 Hydrocodone/Acetaminophen (*Crx) 5-325 Mg Tablet PO 1 tab Q4H PRN Administration Pain Rated 4-6 Heparin Sodium (Porcine) 5,000 units 10/29/21 21:00 10/31/21 10:00 Heparin Sodium 5,000 Units/Ml Vial SUB-Q 5,000 units Q12HR ISABEL Administration Piperacillin/Tazobactam/Dextrose 3.375 gm in 50 mls @ 100 mls/hr 10/29/21 06:00 10/31/21 11:43 Zosyn 3.375 Gm/D5w 50ml Pm IVPB 100 mls/hr Q6H ISABEL Administration Vancomycin HCl 1,250 mg in 250 mls @ 200 mls/hr 10/30/21 18:00 10/31/21 05:04 Vancomycin 1,250 Mg/D5w 250 Ml IVPB 200 mls/hr Q12H ISABEL Administration Morphine Sulfate 4 mg 10/28/21 21:10 10/29/21 08:39 Morphine Sulfate (*Crx) 4 Mg/Ml Inj IV PUSH 4 mg Q2H PRN Administration Pain Rated 7-10 Ondansetron HCl 4
--- NOTE | 2021-10-31 12:49 | PM.IMPN ---
Progress Note: A&P Assessment and Plan (1) Cellulitis and abscess of foot: Code(s): L03.119 - Cellulitis of unspecified part of limb; L02.619 - Cutaneous abscess of unspecified foot Status: Acute Assessment and Plan: Admit to regular medical floor Local care Surgery consult Maliha lao vanc Cultures in progress (2) Puncture wound: Code(s): T14.8XXA - Other injury of unspecified body region, initial encounter Status: Acute Assessment and Plan: Surgery consulted Local care Will give dose of tetanus (3) IVDU (intravenous drug user): Code(s): F19.90 - Other psychoactive substance use, unspecified, uncomplicated Status: Acute Assessment and Plan: Patient with no fevers chills or rigors no night sweats Consider echocardiogram if positive blood cultures (4) Tobacco dependence due to cigarettes: Code(s): F17.210 - Nicotine dependence, cigarettes, uncomplicated Status: Acute Assessment and Plan: Nicotine patch as needed Additional Plan 10/29/2021 Continue with IV antibiotics. Monitor culture. Surgical evaluation. 10/30/2021 WBC count has decreased to 11. Patient is scheduled for in trended today. Will continue with IV antibiotic. Cultures pending. 10/31/2021 Wound culture showing strep infection. Swelling of the foot is getting better. Plan is to continue IV antibiotics today discharge patient home on p.o. antibiotics tomorrow. Subjective Date/time seen: 10/31/21 12:49 Patient was seen during the rounds today. Foot swelling is getting better. No shortness of breath or chest pain. No abdominal pain, no nausea, no vomiting. Mood stable. Review of Systems Constitutional: Constitutional: Denies chills, Denies fatigue, Denies fever(s), Denies malaise and Denies night sweats Eyes: Eyes: Denies change in vision ENT: Denies dysphagia, Denies nasal congestion, Denies nasal discharge, Denies nasal obstruction and Denies odynophagia Cardiovascular: Cardiovascular: Denies acrocyanosis, Denies chest pain, Denies diaphoresis, Denies irregular heart rhythm, Denies radiating jaw, neck or arm pain, Denies palpitations, Denies dyspnea and Denies dyspnea on exertion Respiratory: Respiratory: Denies change in phlegm color, Denies cough, Denies excessive phlegm production, Denies dyspnea, Denies dyspnea on exertion and Denies wheezing Gastrointestinal: Gastrointestinal: Denies abdominal pain, Denies dysphagia, Denies dyspepsia, Denies heartburn, Denies diarrhea, Denies nausea, Denies odynophagia and Denies vomiting Genitourinary: Genitourinary: Denies dysuria and Denies flank pain Integumentary/Breasts: Skin/Breast: Denies rash Neurologic: Denies focal weakness and Denies Sensory deficit (Neuro) Psychiatric: Psychiatric: Reports no additional psychiatric complaints and Reports as per HPI Endocrine: Endocrine: Denies fatigue, Denies polyphagia, Denies polydipsia, Denies polyuria and Denies palpitations Hematologic/Lymphatic: Hematologic/Lymphatic: Reports no additional hematologic/lymphatic complaints and Reports as per HPI Allergic/Immunologic: Allergic/Immunologic: Reports no additional allergic/immunologic complaints, Reports as per HPI and Denies wheezing Exam Const: General: cooperative, comfortable, no acute distress, well developed, alert, awake, Physically active, well groomed and other Nutritional Appearance: thin Orientation/consciousness: patient oriented x3 HENMT: Head: normal to inspection, normocephalic and atraumatic Ears: hearing grossly normal bilaterally General nose exam: Normal external nose present Face and sinus: normal facial exam Eyes: General: appearance normal, both eyes and all related structures Alignment and Position: alignment normal Sclera: sclerae normal Pupils: Equal, round and reactive pupils present EOM: EOMs intact bilaterally Neck: Neck: normal visual inspection, full ROM, no lymphadenopathy, supple and no JVD Thyroi
[2021-10-31 14:00] VITALS: BP 120/61; PULSE 117; RESP 16; TEMP 36.8; O2SAT 100
[2021-10-31] MEDS: SILVERGEL (ELTA) 45 ML 1 APPLIC TOPICAL (14:32)
--- NOTE | 2021-10-31 19:24 | PC.NURSE ---
Patient states he would like to discharge immediately. Informed patient that the hospitalist would still like for him to receive IV antibiotics and to be discharged with PO antibiotics. Encouraged patient to wait for RN to speak with hospitalist in order to get proper medications. Patient states he needs to leave and will not be able to wait very long. Hospitalist called twice with no answer. Dr. Ellsworth informed of patient's desire to leave AMA.
--- NOTE | 2021-10-31 19:36 | PC.NURSE ---
Addendum entered by Dick Mari RN 10/31/21 19:42: Patient out @ 193 Original Note: Patient IV discontinued, pressure dressing applied. Ensured all patient belongings and treatment items were sent with patient to ensure proper care of operative site and IV site after leaving against medical advice. Informed him to follow up with Dr. Ellsworth as needed as planned in his care note. Hospitalist, Dr. Galaviz, returned call @[phone] notified of patient leaving against medical advice.
--- NOTE | 2021-10-31 19:39 | PM.EVENT ---
Event Note Event Note Event Note: Patient refused post op antibiotics and left post op AMA. I was notified at 19:40.
--- NOTE | 2021-11-18 11:49 | PM.DS ---
DS: Admitting Diagnosis Discharge Date 10/31/21 Admitting Diagnosis Cellulitis and abscess of foot DS: Discharge Diagnosis Discharge Diagnosis (1) Cellulitis and abscess of foot: Code(s): L03.119 - Cellulitis of unspecified part of limb; L02.619 - Cutaneous abscess of unspecified foot Status: Acute Assessment and Plan: Admit to regular medical floor Local care Surgery consult Zosyn plus vanc Cultures in progress (2) Puncture wound: Code(s): T14.8XXA - Other injury of unspecified body region, initial encounter Status: Acute Assessment and Plan: Surgery consulted Local care Will give dose of tetanus (3) IVDU (intravenous drug user): Code(s): F19.90 - Other psychoactive substance use, unspecified, uncomplicated Status: Acute Assessment and Plan: Patient with no fevers chills or rigors no night sweats Consider echocardiogram if positive blood cultures (4) Tobacco dependence due to cigarettes: Code(s): F17.210 - Nicotine dependence, cigarettes, uncomplicated Status: Acute Assessment and Plan: Nicotine patch as needed DS: Summary Hospital Course Reason for hospitalization: Cellulitis and abscess foot Hospital Course: 36 years old male was admitted complains of having infection in the foot area. Patient was given IV antibiotics and cultures were done. Ortho was consulted. Patient did not have any complication during stay in the hospital. On 10/31/2022 patient decided to leave against medical advise. All pros and cons including the risk of , including the risk of loss of foot explained to patient with understanding. Patient still left against medical advice. Patient advised to follow-up with primary care physician next day. Patient also advised to call us back if needed or come back to emergency room if is not feeling good at home. Time spent discussing smoking cessation with patient: 3 to 10 minutes Status at Discharge Cognitive/behavioral status at discharge: Stable Functional status at discharge: independent ambulation Time Spent with Patient Time attestation: Total time spent providing and/or coordinating discharge services: Time spent: Less than 30 minutes Exam Const: General: cooperative, comfortable, no acute distress, well developed, alert, awake, Physically active, well groomed and other Nutritional Appearance: thin Orientation/consciousness: patient oriented x3 HENMT: Head: normal to inspection, normocephalic and atraumatic Ears: hearing grossly normal bilaterally General nose exam: Normal external nose present Face and sinus: normal facial exam Eyes: General: appearance normal, both eyes and all related structures Alignment and Position: alignment normal Sclera: sclerae normal Pupils: Equal, round and reactive pupils present EOM: EOMs intact bilaterally Neck: Neck: normal visual inspection, full ROM, no lymphadenopathy, supple and no JVD Thyroid: thyroid normal Lymphatic: no lymphadenopathy noted Resp: Effort & Inspection: normal respiratory effort and able to speak in complete sentences Auscultation: clear to auscultation bilaterally, no crackles, no rales, no rhonchi and no wheezes Cardio: Jugular venous distension: no JVD Rate: regular rate Rhythm: regular rhythm Heart sounds: S1 normal heart sound present and S2 normal heart sound present GI: Inspection: normal to inspection : General: Yes deferred Skin: Rashes: no rashes Wounds: wounds noted (Right plantar aspect) Neuro: General: patient oriented x3, CN's II-XI intact bilaterally and Unable to assess gait Cranial nerves: Yes CN's II-XII intact bilaterally and Yes Equal, round and reactive pupils present Cognition (Neuro): normal cognition Speech: normal speech Gait exam (Neuro): Unable to assess gait Motor exam (neuro): 5/5 motor strength present throughout Sensory Exam: No Sensory deficit (Neuro) Extrem: General: normal to inspection, full ROM, no joint enlar
== END 2021-10-31 19:33 | disposition left against medical advice (07) ==
LOC: ANHED 21:40 → ANH3MEDSUR 22:59 → ANHSUROVER 10-31 19:13 → ANH3MEDSUR 11-02 11:31 → ANHSUROVER 11-02 11:31
PROVIDERS: Internal Medicine; Surgery; Admitting Provider Internal Medicine; Emergency Provider Emergency Medicine; Visit Provider Internal Medicine
PROC: (CPT 10061; principal; 2021-10-30 13:00)
DX: L03.116 Cellulitis of left lower limb (principal); S91.331A Puncture wound without foreign body, right foot, initial encounter; L02.612 Cutaneous abscess of left foot; B95.5 Unspecified streptococcus as the cause of diseases classified elsewhere; W45.0XXA Nail entering through skin, initial encounter; F17.210 Nicotine dependence, cigarettes, uncomplicated; F19.90 Other psychoactive substance use, unspecified, uncomplicated; Z53.29 Procedure and treatment not carried out because of patient's decision for other reasons
CPT/HCPCS: 10061; 36415; 73630; 73701; 80048; 80053; 80202; 83605; 85025; 85027; 86140; 87040; 87070; 87147; 87205; 96365; 96375; 96376; 99285; A9270; G0378; G0379; J0690; J1644; J2250; J2270; J2405; J2543; J2704; J3010; J3370; J7030; J7120; Q9967

== ENCOUNTER 2024-05-13 19:43 | Emergency (ER) | payer OTHER, MEDICAID, SELFPAY ==
--- NOTE | ~2024-05-13 | XR_ITS ---
EXAMINATION: XR ankle LT min 3V DATE: 05/13/2024 20:18 INDICATION: Left ankle injury. TECHNIQUE: 4 views of left ankle were obtained. COMPARISON: None. FINDINGS: Bone alignment is normal. No fracture. Joint spaces are normal. There is an enthesophyte of posterior aspect of calcaneal tuberosity. IMPRESSION: 1. No fracture. Reviewed, dictated and finalized at location E. IMPRESSION: 1. No fracture.
--- NOTE | ~2024-05-13 | XR_ITS ---
EXAMINATION: [id number] DATE: 05/13/2024 20:18 INDICATION: Left chest injury. TECHNIQUE: A frontal view of the chest and 2 views on 3 radiographs of the left ribs were obtained. COMPARISON: None. FINDINGS: There is no pneumonia, pleural effusion, or pneumothorax. The heart size is normal. There i s a fracture of left sixth rib. IMPRESSION: 1. Fracture of left sixth rib. Reviewed, dictated and finalized at location E.
--- NOTE | ~2024-05-13 | XR_ITS ---
EXAMINATION: XR knee LT min 4V DATE: 05/13/2024 20:18 INDICATION: Left knee injury. TECHNIQUE: 4 views of left knee were obtained. COMPARISON: None. FINDINGS: Bone alignment is normal. No fracture. Joint spaces are normal. No knee joint effusion. IMPRESSION: 1. Normal left knee. Reviewed, dictated and finalized at location E. IMPRESSION: 1. Normal left knee.
[2024-05-13 19:58] VITALS: BP 115/80; PULSE 133; RESP 20; TEMP 36.7; O2SAT 99
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
[2024-05-13 20:21] VITALS: PULSE 119
== END 2024-05-13 20:35 | disposition home or self-care (01) ==
PROVIDERS: Emergency Provider Nurse Practitioner
DX: L03.116 Cellulitis of left lower limb (principal); S22.32XA Fracture of one rib, left side, initial encounter for closed fracture; S80.02XA Contusion of left knee, initial encounter; S90.02XA Contusion of left ankle, initial encounter; V86.09XA Driver of other special all-terrain or other off-road motor vehicle injured in traffic accident, initial encounter; F17.210 Nicotine dependence, cigarettes, uncomplicated
CPT/HCPCS: 71101; 73564; 73610; 99214; G0463

== ENCOUNTER 2024-11-18 16:55 | Emergency (ER) | payer OTHER, MEDICAID, SELFPAY ==
--- NOTE | 2024-11-18 16:56 | ED_ITS ---
HPI - URI/Sore Throat General Chief Complaint: Upper Respiratory Infection Stated Complaint: bad pain right side head,cough,chest heavy Time Seen by Provider: 11/18/24 17:06 Source: patient and RN notes reviewed Mode of arrival: ambulatory Limitations: no limitations History of Present Illness HPI Narrative: 39-year-old male presents with concern for headache, cough, chest heaviness, general malaise for 3 days. Reports he has been taking [place]. MD elicited complaint: cough Related Data Allergies Allergy/AdvReac Type Severity Reaction Status Date / Time Sulfa (Sulfonamide Allergy Unknown Unknown Verified 11/18/24 17:13 Antibiotics) Review of Systems Review of Systems: CONSTITUTIONAL: Reports malaise, chills, sweats EYES: Denies visual changes, redness, or discharge. ENT: Reports rhinorrhea, congestion CARDIOVASCULAR: Denies chest pain, palpitations, or edema. RESPIRATORY: Reports cough and chest heaviness. Denies dyspnea. GASTROINTESTINAL: Denies abdominal pain, nausea, vomiting, diarrhea SKIN: Denies rash or itching. MUSCULOSKELETAL: Reports myalgia. NEUROLOGIC: Reports headache. All systems reviewed & are unremarkable except as noted in HPI and below PMFSH Past Medical History Medical History Healthy adult male Surgical History Surgical History No history of previous surgery Social History Social History Smoking status: Current every day smoker Tobacco type: cigarettes Second hand tobacco smoke exposure: Yes Alcohol intake: unknown Substance use: unknown Spiritual care concerns: No Comments At time of signature, agree with nursing past medical, surgical, social and family history. There is no relevant family history pertinent to the presenting complaint Exam Narrative: GENERAL: Nontoxic-appearing, well-nourished, and in no acute distress. HEAD: Normocephalic EYES: PERRLA, conjunctivae clear ENT: Nares clear. Mucous membranes moist. TM pearly mireles with dull light reflex bilaterally; no tragal tenderness. Oropharynx not erythematous without lesions. Tonsils not enlarged and without exudate, no drooling, no hoarseness, no t rismus, uvula midline. NECK: Supple. No lymphadenopathy CHEST: Expiratory wheeze throughout, breath sounds equal. No rhonchi, rales, or stridor. No respiratory distress, speaks in full sentences. HEART: Regular rate and rhythm. No murmur heard. SKIN: Warm, dry, no rash. NEURO: Alert and oriented x3. PSYCH: Normal mood and affect Course Course Emergency Course: Patient is aware of diagnosis, understands and agrees to treatment plan. Anticipatory guidance given. Patient agrees to follow-up as directed and is aware of reasons to seek care at the emergency department. Portions of this record may have been created with voice recognition software Level of Care: Express Care Visit Vital Signs Vital signs: Vital Signs Temperature 99.4 F 11/18/24 17:04 Pulse Rate 132 H 11/18/24 17:04 Respiratory Rate 18 11/18/24 17:04 Blood Pressure 150/84 H 11/18/24 17:04 Pulse Oximetry 100 11/18/24 17:04 Oxygen Delivery Room Air 11/18/24 17:04 Temperature 99.4 F 11/18/24 17:04 Pulse Rate 132 H 11/18/24 17:04 Respiratory Rate 18 11/18/24 17:04 Blood Pressure 150/84 H 11/18/24 17:04 Pulse Oximetry 100 11/18/24 17:04 Oxygen Delivery Room Air 11/18/24 17:04 Reviewed. MDM - URI/Sore Throat MDM Narrative Medical decision making narrative: Differential diagnosis considered: Mohan virus, strep pharyngitis, allergic rhinitis, upper respiratory tract infection, sinusitis, rhinosinusitis, nasopharyngitis. viral pharyngitis, otitis media, otitis externa, pneumonia, bronchitis, viral cough syndrome, viral syndrome, and influenza. Exam findings show no acute concerns or changes; patient is non-toxic appearing and is in no distress. Patient is appropriate for outpatient treatment and follow-up. Lab Data Attestation: I reviewed the patient's lab results. Critical Care Time Critical Care Time Critical Care Time: No Discharge Plan Discharge Clinical Impression: Influenza A Patient Disposition: Home, Self-Care Condition: Stable Instructions: Influenza (ED) Additional Instructions: -Take strict precautions to prevent the spread of your virus. Be diligent about covering your cough (even when you are alone) and washing your hands frequently. -You may contagious until you have been symptom and/or fever free for 24 hours without fever reducing medicine -Alternate Ibuprofen and Tylenol for pain and fever relief (per package directions) -use your inhaler as needed for cough, shortness of breath -Drink plenty of fluid - drink fluid with electrolytes such as Gatorade or other oral re-hydration solution. Avoid caffeine, which can make dehydration worse. -Get plenty of rest to help your body heal. -Use a cool mist humidifier for chest and nasal congestion. -Eat RAW honey or use cough drops to ease throat discomfort -Do not smoke or expose children to secondhand smoke -Wash your hands frequently. -Please follow-up with your primary care doctor in the next 1-2 days if your symptoms do not improve. -If you have any worsening of symptoms or any other concerns please go to the ED immediately. -Please take medications as prescribed and continue taking your home medications as usual. Patient Language: Estonian Prescriptions: New methylprednisolone [Medrol (Sy)] 4 mg tablets,dose pack See Rx Instructions .ROUTE .COMPLEX Qty: 21 0RF Rx Instructions: orally per package directions albuterol sulfate 90 mcg/actuation HFA aerosol inhaler 2 puff INHALATION QID PRN (Reason: shortness of breath or wheezing) Qty: 8.5 0RF Follow-up/Referrals: PHYSICIAN,[employer] MACHINE OPERATOR [Primary Care Provider] - Time of Disposition: 17:19
[2024-11-18 17:04] VITALS: BP 150/84; PULSE 132; RESP 18; TEMP 37.4; O2SAT 100
[2024-11-18 17:19] LABS: EDSTREPNEGPOS1 Negative (Negative)
[2024-11-18 17:28] LABS: EDCOVIDSCREEN Negative (Negative); EDINFLUASCREEN Positive (Negative); EDINFLUBSCREEN Negative (Negative)
== END 2024-11-18 17:28 | disposition home or self-care (01) ==
PROVIDERS: Emergency Provider Nurse Practitioner
DX: J10.1 Influenza due to other identified influenza virus with other respiratory manifestations (principal); Z20.822 Contact with and (suspected) exposure to COVID-19; F17.210 Nicotine dependence, cigarettes, uncomplicated
CPT/HCPCS: 87081; 87426; 87804; 87880; 99213; G0463

== ENCOUNTER 2025-11-02 18:40 | Emergency (ER) | payer BC, SELFPAY ==
--- NOTE | 2025-11-02 18:41 | ED.BACK ---
HPI - Back Pain/Injury General Chief Complaint: Back Pain/Injury Stated Complaint: Right Side Back Pain Time Seen by Provider: 11/02/25 18:41 Source: patient Mode of arrival: ambulatory Limitations: no limitations History of Present Illness HPI Narrative: Tanner is a 40-year-old male patient presenting to the clinic today with complaints of right-sided back pain x1 day. He reports he started having back pain yesterday in the kitchen while he was making brownies. No known injury. Is having pain to the right upper mid back. Pain it is only with movement. At rest he does not have any pain. Feels as though he is having a muscle spasm. Denies any chest pain or shortness of breath. He denies having a rash. He has not taken anything for symptoms. Currently rates the at a 6/10 with movement. Related Data Allergies Allergy/AdvReac Type Severity Reaction Status Date / Time Sulfa (Sulfonamide Allergy Unknown Unknown Verified 11/02/25 19:13 Antibiotics) Review of Systems Review of Systems: Pertinent positives per HPI. Patient denies any fever, chills, rash, headache, visual changes, dizziness, cough, runny nose, sore throat, shortness of breath, chest pain, palpitations, nausea, vomiting, diarrhea, constipation, abdominal pain, or any urinary issues. [facility] Past Medical History Medical History Healthy adult male Surgical History Surgical History No history of previous surgery Social History Social History Smoking status: Current every day smoker Tobacco type: cigarettes Second hand tobacco smoke exposure: Yes Alcohol intake: unknown Substance use: unknown Spiritual care concerns: No Comments At the time of my signature, I reviewed and agree with the nursing past medical, surgical, social, and family history. There is no relevant family history pertinent to the patient complaint. Exam Narrative: General: Well-developed, well nourished, in no apparent distress Head: Normocephalic, atraumatic. Cardio: Regular rate and rhythm, s1 and s2 normal, no murmur appreciated. Resp: Clear to auscultation bilaterally, no rhonchi, rales, wheezing or rubs. Musculoskeletal: No deformity, non-tender to palpation, pain with movement to the right thoracic back musculature with movement of the right arm, grossly normal range of motion, muscle strength strong and equal in BLE. SLT negative, patellar reflexes 2/4 bilaterally, negative foot drop, normal gait and station Course Course Level of Care: Express Care Visit Vital Signs Vital signs: Vital Signs Temperature 36.9 C 11/02/25 19:00 Pulse Rate 96 11/02/25 19:00 Respiratory Rate 20 11/02/25 19:00 Blood Pressure 116/67 11/02/25 19:00 Pulse Oximetry 100 11/02/25 19:00 Oxygen Delivery Room Air 11/02/25 19:00 Temperature 36.9 C 11/02/25 19:00 Pulse Rate 96 11/02/25 19:00 Respiratory Rate 20 11/02/25 19:00 Blood Pressure 116/67 11/02/25 19:00 Pulse Oximetry 100 11/02/25 19:00 Oxygen Delivery Room Air 11/02/25 19:00 [facility] MDM Narrative Medical decision making narrative: At the time of visit patient is resting comfortably on the exam table. Patient appears to be nontoxic. Complaints of right-sided back pain x1 day. He reports he started having back pain yesterday in the kitchen while he was making brownies. No known injury. Is having pain to the right upper mid back. Pain it is only with movement. At rest he does not have any pain. Feels as though he is having a muscle spasm. Denies any chest pain or shortness of breath. He denies having a rash. He has not taken anything for symptoms. Currently rates the at a 6/10 with movement. On exam patient has a right sided thoracic with some back pain with movement of the right arm-nontender to palpation, pain is nonradiating, lung sounds are clear, heart rates regular rate and rhythm Plan: I suspect patient has right-sided thoracic back pain/muscles strain. Prescription for naproxen and baclofen was sent to the pharmacy. Supportive measures were discussed with the patient and they voiced understanding discharge instructions and agrees to treatment plan. Return precautions reviewed Differential Diagnosis Differential Diagnosis: Differential diagnostic considerations for back pain include herniated disc, sciatica, abscess, strain/sprain, discitis, myelitis, fracture, hematoma, cauda equina, osteomyelitis, metastatic and/or primary malignancy, renal colic, pyelonephritis, AAA. Discharge Plan Discharge Clinical Impression: Acute right-sided back pain Qualifiers: Back pain location: thoracic back pain Qualified Code(s): M54.6 - Pain in thoracic spine Muscle strain of right upper back Qualifiers: Encounter type: initial encounter Qualified Code(s): S29.012A - Strain of muscle and tendon of back wall of thorax, initial encounter Patient Disposition: Home Condition: Stable Instructions: Antibiotic Form, Muscle Strain (ED), Back Pain (ED) Additional Instructions: Take any prescription medication only as prescribed-naproxen and baclofen Be mindful of sedation precautions given to you if taking a muscle relaxer. May use heat or ice to the affected area Consider massage or chiropractor adjustment if this was discussed with provider May use blue emu, lidocaine patches, or asper cream to affected area- do not apply heat or ice directly over cream- can cause burn. Complete appropriate back stretching exercises. Follow up with your PCP in 3-5 days if symptom persist. Patient Language: Kinyarwanda Prescriptions: New baclofen 10 mg tablet 10 mg PO Q8H PRN (Reason: muscle spasm) 7 Days Qty: 21 0RF naproxen 500 mg tablet 500 mg PO BID PRN (Reason: pain) 7 Days Qty: 14 0RF Follow-up/Referrals: UNKNOWN,DOCTOR [Non-Staff] Time of Disposition: 19:04 Quality NIHSS Nursing Documentation ED NIHSS nursing documentation: reviewed/agree
[2025-11-02 19:00] VITALS: BP 116/67; PULSE 96; RESP 20; TEMP 36.9; O2SAT 100
== END 2025-11-02 19:13 | disposition home or self-care (01) ==
PROVIDERS: Emergency Provider Nurse Practitioner Family
DX: S29.012A Strain of muscle and tendon of back wall of thorax, initial encounter (principal); F17.210 Nicotine dependence, cigarettes, uncomplicated; X58.XXXA Exposure to other specified factors, initial encounter
CPT/HCPCS: 99213; G0463